=== PATIENT | female | born 1980 | race Caucasian/White ===

== ENCOUNTER 2024-11-06 09:17 | Day surgery (SDC) | payer OTHER ==
[2024-11-03 15:34] VITALS: BMI 20.2
[2024-11-06 09:45] VITALS: RESP 16
[2024-11-06 11:58] VITALS: PULSE 65; TEMP 97.4
[2024-11-06 12:00] VITALS: BP 103/52
== END 2024-11-06 12:10 | disposition home or self-care (01) ==
LOC: FASU-ENDO 09:17
PROVIDERS: ATTEND Internal Medicine Gastroenterology
PROC: 0DJD8ZZ Inspection of Lower Intestinal Tract, Via Natural or Artificial Opening Endoscopic (ICD-10-PCS; principal; 2024-11-06 11:00)
DX: Z12.11 Encounter for screening for malignant neoplasm of colon (principal); K64.1 Second degree hemorrhoids
CPT/HCPCS: 81025